=== PATIENT | male | born 1990 | race Caucasian/White ===

== ENCOUNTER 2017-02-21 00:24 | Emergency (ER) | payer SELFPAY ==
[~2017-02-21] VITALS: Ht 175.3 cm; Wt 63.6 kg
[~2017-02-21 00:24] MED LIST: AMOX-366 PO; AMOX500T2 PO; HYDR-4003 PO; HYDR-656 PO; IBUP800T28 PO; NAPR500T PO; PENI500T PO; PRE20 PO; TRAM50TA2 PO
[2017-02-21 00:29] VITALS: BP 117/76; PULSE 91; RESP 14; O2SAT 97
--- NOTE | 2017-02-21 00:39 | ED.REPORT ---
HPI- Male Date of Service Feb 21, 2017 ED Provider: Memo Worthington DO The patient is a 26 year old male with a hx of epilepsy not on medication presenting to the ED complaining of right testicular pain onset 11 hours ago while he was sitting at work. He claims that it is very painful, and the pain is intensifying. Ad admits to swelling. He denies vomiting, fever, chills, dysuria, or penile drainage. Nursing Notes Stated Complaint: SWOLLEN TESTICLE Chief Complaint: General Complaint Nursing Notes Reviewed: Yes Allergies: Coded Allergies: cyclobenzaprine (Verified Allergy, Unknown, seizures, 10/29/15) Scheduled Amoxicillin (Amoxicillin) 500 Mg Tablet 500 MG PO TID Amoxicillin/Clav K 875-125 mg (Augmentin 875-125 mg) 1 Each Tablet 1 TABLET PO BID Penicillin V Potassium (Penicillin V Potassium) 500 Mg Tablet 500 MG PO TID Prednisone (PredniSONE) 20 Mg Tablet 40 MG PO DAILY Scheduled PRN Hydrocodone-Acetaminophen 5-325 mg (Hydrocodone-Acetaminophen 5-325 mg) 1 Each Tablet 1-2 TABLET PO QID PRN PRN For Pain Ibuprofen (Ibuprofen) 800 Mg Tablet 800 MG PO TID PRN PRN For Pain Naproxen (Naprosyn) 500 Mg Tablet 500 MG PO BID PRN PRN For Pain Tramadol (Tramadol) 50 Mg Tablet 100 MG PO Q6H PRN PRN For Pain hydrOXYzine Hcl (HydrOXYzine Hcl) 25 Mg Tablet 25 MG PO TID PRN PRN For Itching General Time Seen by MD: 00:39 Chief Complaint Testicle painful right Hx Obtained From: Patient Arrived By: Walk-in Onset Occurred: 9 - 12 hours ago (11 hours ago) Symptom Duration: Since onset Location: : Testicle right Quality: Painful Associated with: Reports: Scrotal swelling Recent Healthcare: No recent doctor visit, No recent hospitalization Similar Sx Previous: No Past Medical History Past Medical History Notes: PCP: none Past Medical History Back injury Reactive airway disease widespread dental decay Epilepsy Reports: Seizure disorder Past Surgical History None Smoking History Current Every Day Smoker Social History Alcohol Use: "Social" Drug Use: Denies drug use Other Social History: Good social support, Local resident Ambulatory Status Independent Review of Systems Constitutional: Denies: Chills, Fever GI: Denies: Nausea, Vomiting Male: Reports Testicular pain (right), Denies Dysuria, Denies Penile discharge Skin: Reports Swelling Complete sys rev & neg: except as marked. Respiratory: Denies: Shortness of breath Neurologic: Denies: Headache Physical Exam Initial Vital Signs Vital Signs (First) Date Time Temp Pulse Resp B/P Pulse Ox O2 Delivery O2 Flow Rate FiO2 02/21/17 00:29 37.4 91 14 117/76 97 Room Air Initial VS: Reviewed, Vital signs normal General/Constitutional: Well-developed, Well-nourished Head / Eyes: Atraumatic, Normocephalic, PERRL ENT: Mucous membranes moist Neck: Supple, Non-tender, Full range of motion Respiratory: Breath sounds normal, No respiratory distress Cardiovascular: Regular rate & rhythm, Heart sounds normal Abdomen / GI: Soft, Non-tender Back: No CVA tenderness Lymphatic: No lymphadenopathy Extremities: Vascular intact Skin: Warm, Dry Neurologic: Alert, Oriented Psychiatric: Mood/affect normal, Behavior normal Male Genitourinary: Atraumatic, No penile discharge, No hernia No swelling Tenderness of the inferior portion of the testicle and epididymis on the right side Interpretation & Diagnostics Lab Results Interpretation Test 02/21/17 01:10 02/21/17 01:30 Hold Urine Received (Received) US Renal/Urinary Tract Testicles normal Epididymitis Exam Type: Diagnostic Re-Eval/Medical Decision Med Decision/Clinical Course Patient presents with unilateral testicle and epididymal pain, ultrasound consistent with epididymitis. Given his age he will be treated presumptively for sexually transmitted disease. His significant other is at the bedside as well and they are informed not to have unprotected intercourse until the results of his gonorrhea and chlamydia testing are resulted. Return and follow-up precautions given. Re-Evaluation/Progress : Time of Eval: 02:34 Re-Evaluation/Progress Note: Discussed US results and plan to discharge. Patient understands and agrres with the plan. All questions addressed at this time. Counseled Regarding: Diagnosis, Lab results, Need for follow-up, When/why to return to ED Discharge & Departure Impression: Primary Impression: Epididymitis Disposition: Home Discharge Condition All VS Reviewed: Yes Condition: Improved Patient Instructions: Epididymitis (ED) Additional Instructions: You have epididymitis which is an infection and inflammation of the epididymis, the area behind your testicle within the scrotum. Take doxycycline as prescribed as well as ibuprofen. Using boxer briefs or briefs will be more comfortable for you. Follow up with a primary care doctor in the next few days. Return to the ER as needed for worsening symptoms. Referrals: Katharine Clements (PCP) Asya Attestation Portions of this note were transcribed by Andrés Ricardo. I, Dr. Worthington personally performed the history, physical exam and medical decision-making; I reviewed and confirmed the accuracy of the information in the transcribed note. Signed by: Asya Talbot, 02/21/2017 copies to: Katharine Clements Timothy S DO Feb 21, 2017 00:39 Feb 21, 2017 00:57
[2017-02-21] MEDS ORDERED: cefTRIAXone Inj 500 MG, Lidocaine PF 1% Inj 1 ML in Syringe 1 EACH IM ONE (02:35)
[2017-02-21] MEDS ORDERED: cefTRIAXone 1,000 mg Inj IM ONE (02:35)
[2017-02-21] MEDS ORDERED: DOXY100T2 PO (02:44)
[2017-02-21 03:48] VITALS: BP 128/74; PULSE 73; O2SAT 95
--- NOTE | 2017-02-21 10:43 | DRSVH ---
PROCEDURE: US TESTICULAR SONOGRAM WITH DOPPLER INDICATIONS: swollen testicle TECHNIQUE: Real-time scanning was performed of the scrotum and testicles, with image documentation. Color and p ulse Doppler interrogation was performed of both testicles. COMPARISON: None. FINDINGS: Right: Testicle is normal in size at 4.1 x 2.5 x 2.3 cm, and homogenous in echotexture. Mild increa sed vascularity is noted. Epididymis is normal in overall size and morphology. Mild increased vascula rity. Small hydrocele. Overlying scrotal skin is normal in thickness. Left: Testicle is normal in size at 4.3 x 2.2 x 2.1 cm, and homogeneous in echotexture. Epididymis is normal in overall size and morphology. Small hydrocele. Overlying scrotal skin is normal in thickn ess. Doppler: Color and pulse Doppler demonstrate normal and symmetric arterial flow in both testicles. IMPRESSION: 1. Slight increased vascularity within the right testicle and epididymis suggestive of epididymo-orch itis. Dictated by: Almaz Allen M.D. on 02/21/2017 at 10:40 Approved by: Almaz Allen M.D. on 02/21/2017 at 10:42
== END 2017-02-21 03:52 | disposition home or self-care (01) ==
LOC: SED 00:24
DX: N45.1 Epididymitis (principal); G40.909 Epilepsy, unspecified, not intractable, without status epilepticus; J45.909 Unspecified asthma, uncomplicated; F17.200 Nicotine dependence, unspecified, uncomplicated; Z88.8 Allergy status to other drugs, medicaments and biological substances
CPT/HCPCS: 76870; 87491; 87591; 93975; 96372; 99285; J0696